=== PATIENT | male | born 1970 | race Caucasian/White ===

== ENCOUNTER 2020-12-20 15:37 | Outpatient (REF) | payer OTHER, SELFPAY ==
[2020-12-20 16:32] LABS: Anion Gap 12 (12-20); Blood Urea Nitrogen 13 mg/dL (9-16); Calcium 9.5 mg/dL (8.4-10.2); Carbon Dioxide 26 mmol/L (22-29); Chloride 107 mmol/L (96-108); Estimated Glomerular Filt Rate > 60; Glucose Random 102 mg/dL (60-115); Potassium 4.7 mmol/L (3.3-5.1); Sodium 140 mmol/L (135-145)
[2020-12-20 16:55] LABS: Thyroid Stimulating Hormone 1.52 uIU/mL (0.32-4.0)
[2020-12-20 17:08] LABS: Folate 11.6 ng/mL (> or = 4.0); Vitamin B12 237 pg/mL (200-900)
== END 2020-12-20 15:38 | disposition home or self-care (01) ==
LOC: HO.LAB 15:37
PROVIDERS: PCP Internal Medicine; Visit Provider Psychiatry & Neurology Neurology
DX: S06.9X9D Unspecified intracranial injury with loss of consciousness of unspecified duration, subsequent encounter (principal)
CPT/HCPCS: 36415; 80048; 82607; 82746; 84443

== ENCOUNTER 2021-01-26 18:54 | Outpatient (REF) | payer OTHER, SELFPAY ==
--- NOTE | ~2021-01-26 | MR_ITS ---
EXAMINATION: MR head/brain wo con CLINICAL INFORMATION: Reason for Exam TBI, Seizure. COMPARISON: None. TECHNIQUE: Routine unenhanced seizure protocol MRI of the brain. FINDINGS: A minimal number scattered supratentorial subcortical punctate (less than 3 mm) T2 hyperintensities are noted. Similar findings are a frequently encountered asymptomatic finding are therefore of uncertain clinical significance. No perivenular lesions are visualized. Susceptibility weighted images demonstrate no evidence of acute or chronic hemorrhage within the brain parenchyma. The ventricles and sulci are normal in size and configuration. No acute infarcts or intracranial tumors are noted. The craniocervical junction cerebellar tonsils are normal in appearance. No suspicious marrow abnormalities. Coronal images demonstrate normal appearance of the hippocampal formations. Normal flow-related signal intensity is identified in the major intracranial vessels and dural sinuses. Orbits and globes are normal in appearance. No mastoid effusions. MR/MR head/brain wo con IMPRESSION: Normal unenhanced seizure protocol MRI of the brain.
== END 2021-01-26 18:55 | disposition home or self-care (01) ==
LOC: HO.MRI 18:54
PROVIDERS: Visit Provider Psychiatry & Neurology Neurology
DX: S06.9X9A Unspecified intracranial injury with loss of consciousness of unspecified duration, initial encounter (principal); R56.9 Unspecified convulsions
CPT/HCPCS: 70551

== ENCOUNTER → 2021-02-13 12:57 | Outpatient (REF) | payer OTHER, SELFPAY | LOC: HO.SL 12:57 | PROVIDERS: PCP Internal Medicine; Visit Provider Psychiatry & Neurology Neurology | DX: G47.33 Obstructive sleep apnea (adult) (pediatric) (principal) | CPT/HCPCS: 95806 ==

== ENCOUNTER 2021-04-05 17:41 | Emergency (ER) | payer OTHER, SELFPAY | END 2021-04-05 19:37 | disposition left against medical advice (07) | PROVIDERS: Emergency Provider Emergency Medicine; PCP Internal Medicine | DX: J18.9 Pneumonia, unspecified organism (principal) ==

== ENCOUNTER → 2022-05-25 13:34 | Outpatient (BNVA) | payer OTHER, SELFPAY | PROVIDERS: PCP Internal Medicine; Visit Provider Nurse Practitioner Family | DX: M25.511 Pain in right shoulder (principal); G89.29 Other chronic pain; M19.011 Primary osteoarthritis, right shoulder | CPT/HCPCS: 99202 ==

== ENCOUNTER 2022-06-28 09:04 | Outpatient (REF) | payer OTHER, MEDICAID, SELFPAY ==
--- NOTE | ~2022-06-28 | XR_ITS ---
EXAMINATION: XR SHOULDER, RIGHT CLINICAL INFORMATION: Right shoulder pain COMPARISON: Radiographs right shoulder 06/29/2015, chest radiographs 07/27/2018 TECHNIQUE: Right shoulder is imaged in 3 views. FINDINGS: There is progressive arthropathy involving the glenohumeral joint with joint narrowing, fine subchondral cysts, subchondral sclerosis, and osteophytes. There is a bulky spur at the inferior medial humeral head. There is interval mild widening acromioclavicular joint with borderline elevation distal right clavicle consistent with acromioclavicular sprain since prior imaging 2015. There are no visible rotator cuff calcifications or definite articular cartilage chondrocalcinosis. XR/XR shoulder RT min 2V IMPRESSION: -Progressive arthropathy glenohumeral joint. -Mild acromioclavicular sprain since prior imaging 2015
== END 2022-06-28 09:05 | disposition home or self-care (01) ==
LOC: HO.HOSX 09:04
PROVIDERS: Visit Provider Orthopaedic Surgery
DX: M19.011 Primary osteoarthritis, right shoulder (principal)
CPT/HCPCS: 20610; 73030; 99202; J1100